=== PATIENT | male | born 1985 ===

== ENCOUNTER 2021-06-05 02:51 | Inpatient (IN) | payer MEDICAID ==
[~2021-06-05] VITALS: Ht 182.9 cm; Wt 79.6 kg
[2021-06-05] MEDS ORDERED: ENOXAPARIN 40 MG/0.4 ML SQ SCH (04:30)
[2021-06-05] MEDS ORDERED: LORazepam 1MG TABLET PO PRN (04:30)
[2021-06-05] MEDS ORDERED: MELATONIN 5 MG TABLET PO PRN (04:30)
[2021-06-05] MEDS ORDERED: PHARMACY MAY ADJ FOR RENAL FX MC PRN (04:30)
[2021-06-05] MEDS ORDERED: POLYETHYLENE GLYCOL 17 GM PACKET PO PRN (04:30)
[2021-06-05] MEDS ORDERED: LABETALOL 5MG/ML, 20ML IVPush PRN (04:30)
[2021-06-05] MEDS ORDERED: LORazepam 0.5MG TABLET PO PRN (04:30)
[2021-06-05] MEDS ORDERED: ONDANSETRON 2MG/ML, 2ML IVPush PRN (04:30)
[2021-06-05] MEDS ORDERED: VANCOMYCIN PER PHARMACY MC PRN (04:30)
--- NOTE | 2021-06-05 04:51 | NUR ---
PT TRANSFER FROM [facility] FOR ABCESS TO LEFT UPPER ARM. PT REPORTS HE GOT THE ABCESS 2 WEEKS AGO FROM USING INTRAVENOUS HEROIN AND METH. PT IS AAOX4 AND RESTING COMFORTABLY IN BED. CONNECTED TO VITAL MACHINE. WILL CONTINUE TO MONITOR.
[2021-06-05] MEDS ORDERED: PLEASE ENTER ALLERGIES MC SCH (05:00)
[2021-06-05] MEDS: LACTATED RINGERS 1,000 ML IV SCH ×4 (05:20→18:26)
--- NOTE | 2021-06-05 05:20 | NUR ---
FAXED PHARMACY FOR BANANA BAG AND ANTIBIOTICS.
--- NOTE | 2021-06-05 05:22 | NUR ---
PRIOR NOTES WRITTEN BY JOHN MONTANA
[2021-06-05 05:24] LABS: MEAN CORPUSCULAR HEMOGLOBIN 32.3 pg (27.5-34.5); MEAN CORPUSCULAR HGB CONC 35.1 g/dL (33.2-36.2); MEAN PLATELET VOLUME 7.4 fL (7.4-10.4); PLATELET COUNT 240 x10^3/uL (130-400); RED BLOOD COUNT 3.46 x10^6/uL (4.38-5.82)
[2021-06-05 05:30] LABS: ALBUMIN 1.9 g/dL (3.4-5.0); ANION GAP 9 mmol/L (5-15); CHLORIDE 104 mmol/L (98-107); CREATININE 0.96 mg/dL (0.7-1.3)
[2021-06-05] MEDS: POTASSIUM CHLORIDE 20 MEQ, MAGNESIUM SULFATE 1 GM, FOLIC ACID 1 MG, THIAMINE 200 MG, MV... IV SCH ×2 (05:52→11:53)
[2021-06-05] MEDS ORDERED: CHLORDIAZEPOXIDE 10 MG CAPSULE ONE ×2 (06:13→11:40)
[2021-06-05] MEDS: CHLORDIAZEPOXIDE 10 MG CAPSULE PO SCH ×2 (06:20→11:53)
[2021-06-05] MEDS: CEFEPIME 2 GM in DEXTROSE 5% 100 ML IV SCH ×2 (06:20→14:28)
--- NOTE | 2021-06-05 06:34 | NUR ---
PT AMBULATED TO RESTROOM AND BACK
[2021-06-05] MEDS ORDERED: OXYcodone/APAP 5/325MG TABLET ONE (06:43)
[2021-06-05 06:45] LABS: BAND#(MANUAL) 0.88 x10^3/uL; BANDS%(MANUAL) 8 % (0-7); EOS#(MANUAL) 0.11 x10^3/uL (0.0-0.4); EOS% (MANUAL) 1 % (1-7); LYMPH#(MANUAL) 0.88 x10^3/uL (1-3.4); LYMPHS% (MANUAL) 8 % (22-44); MONOS#(MANUAL) 1.32 x10^3/uL (0.3-2.7); MONOS% (MANUAL) 12 % (2-9); MYELOCYTES# (MANUAL) 0.22 x10^3/uL (0-0); MYELOCYTES% (MANUAL) 2 % (0-0); SEG#(MANUAL) 7.59 x10^3/uL (1.8-6.8); SEGS% (MANUAL) 69 % (42-75)
[2021-06-05] MEDS: OXYcodone IR 5MG TABLET PO PRN ×3 (06:45→20:00)
[2021-06-05 06:46] LABS: <PLATELET ESTIMATE> ADEQUATE; <PLT MORPHOLOGY> NORMAL PLT MORPH; <RBC MORPHOLOGY> NORMAL
--- NOTE | 2021-06-05 07:09 | NUR ---
ASSUMING CARE OF PT AFTER BEDSIDE REPORT. YELLOW MED REQ SLIP SENT TO PHARMACY.
--- NOTE | 2021-06-05 07:20 | NUR ---
ASSUMING CARE OF PT AFTER BEDSIDE REPORT. PT RESTING IN BED. VSS. SALCIDO ORTHOR AT BEDSIDE. PT PROVIDED WITH WARM BLANKETS.
[2021-06-05 07:39] LABS: ALBUMIN 1.9 g/dL (3.4-5.0)
[2021-06-05 07:42] LABS: ALANINE AMINOTRANSFERASE 51 U/L (12-78); ALKALINE PHOSPHATASE 114 U/L (45-117); BILIRUBIN, DIRECT < 0.1 mg/dL (0.1-0.2); BILIRUBIN,TOTAL 0.1 mg/dL (0.2-1.0); TOTAL PROTEIN 6.2 g/dL (6.4-8.2)
[2021-06-05] MEDS: FAMOTIDINE 20 MG/2 ML IVPush SCH ×2 (08:48→20:00)
--- NOTE | 2021-06-05 09:03 | NUR ---
PT ASLEEP WITH EVEN AND UNLABORED RESPIRATIONS. MENG. FABIAN.
[2021-06-05] MEDS ORDERED: HYDROmorphone 2 MG/ML, 1ML ONE (09:59)
[2021-06-05] MEDS: HYDROmorphone 2 MG/ML, 1ML IVPush PRN ×2 (10:03→13:01)
[2021-06-05] MEDS: VANCOMYCIN 1,800 MG in SODIUM CHLORIDE 0.9% 250 ML IV SCH ×2 (11:30→23:56)
[2021-06-05] MEDS ORDERED: PHARMACOKINETIC CONSULTATION MC ONE (11:30)
[2021-06-05] MEDS ORDERED: PHARMACOKINETIC MONITORING MC PRN (11:30)
[2021-06-05 12:58] VITALS: BP 178/90
[2021-06-05] MEDS: LORazepam 2 MG/ML, 1ML IV PRN (14:19)
[2021-06-05] MEDS ORDERED: CHLORDIAZEPOXIDE 10 MG CAPSULE PO SCH (16:00)
[2021-06-05] MEDS ORDERED: HYDROmorphone PCA 30 MG/30 ML IV PRN (16:00)
[2021-06-05] MEDS ORDERED: CHLORDIAZEPOXIDE 25 MG CAPSULE PO SCH (16:00)
[2021-06-05] MEDS ORDERED: DIAZEPAM 10 MG TABLET PO SCH (16:30)
[2021-06-05] MEDS ORDERED: DIAZEPAM 5 MG TABLET ONE (17:11)
[2021-06-05] MEDS: METRONIDAZOLE PMX 500MG/100ML 100 ML IV SCH ×2 (17:26→22:09)
[2021-06-05 19:58] VITALS: BP 116/72
[2021-06-05] MEDS: ACETAMINOPHEN 325 MG TABLET PO PRN (22:18)
[2021-06-06] VITALS: BP 144/85
[2021-06-06] MEDS: OXYcodone IR 5MG TABLET PO PRN ×3 (00:02→09:03)
[2021-06-06] MEDS ORDERED: OMNIPAQUE 350 MG/ML, 100ML BOTTLE ONE (00:30)
[2021-06-06] MEDS: CEFEPIME 2 GM in DEXTROSE 5% 100 ML IV SCH ×3 (01:11→17:29)
[2021-06-06] MEDS: METRONIDAZOLE PMX 500MG/100ML 100 ML IV SCH ×3 (04:07→19:25)
[2021-06-06] MEDS: POTASSIUM CHLORIDE 20 MEQ, MAGNESIUM SULFATE 1 GM, FOLIC ACID 1 MG, THIAMINE 200 MG, MV... IV SCH (05:26)
[2021-06-06 05:43] LABS: ALBUMIN 1.7 g/dL (3.4-5.0); ANION GAP 10 mmol/L (5-15); CALCIUM 8.1 mg/dL (8.5-10.1); CHLORIDE 97 mmol/L (98-107); MEAN CORPUSCULAR HEMOGLOBIN 32.4 pg (27.5-34.5); MEAN CORPUSCULAR HGB CONC 35.6 g/dL (33.2-36.2); MEAN PLATELET VOLUME 6.9 fL (7.4-10.4); PLATELET COUNT 255 x10^3/uL (130-400); RED BLOOD COUNT 3.65 x10^6/uL (4.38-5.82); RED CELL DISTRIBUTION WIDTH 13.8 % (9.4-14.8)
[2021-06-06 05:47] LABS: ALANINE AMINOTRANSFERASE 42 U/L (12-78); ALKALINE PHOSPHATASE 99 U/L (45-117); BILIRUBIN,TOTAL 0.5 mg/dL (0.2-1.0); CREATININE 0.76 mg/dL (0.7-1.3); TOTAL PROTEIN 5.8 g/dL (6.4-8.2)
[2021-06-06] MEDS ORDERED: CHLORDIAZEPOXIDE 5 MG CAPSULE PO SCH (06:00)
[2021-06-06 06:38] LABS: <PLATELET ESTIMATE> ADEQUATE; <PLT MORPHOLOGY> NORMAL PLT MORPH; <RBC MORPHOLOGY> NORMAL; BAND#(MANUAL) 0.71 x10^3/uL; BANDS%(MANUAL) 7 % (0-7); EOS% (MANUAL) 1 % (1-7); LYMPH#(MANUAL) 1.11 x10^3/uL (1-3.4); LYMPHS% (MANUAL) 11 % (22-44); METAMYELOCYTES% (MANUAL) 3 % (0-1); MONOS#(MANUAL) 1.31 x10^3/uL (0.3-2.7); MONOS% (MANUAL) 13 % (2-9); SEG#(MANUAL) 6.57 x10^3/uL (1.8-6.8); SEGS% (MANUAL) 65 % (42-75)
[2021-06-06] MEDS ORDERED: CHLORHEXIDINE 15 ML UDC MM STA (08:12)
[2021-06-06 08:37] VITALS: BP 146/87
[2021-06-06] MEDS: DIAZEPAM 5 MG TABLET PO SCH ×2 (09:03→16:34)
[2021-06-06] MEDS: FAMOTIDINE 20 MG/2 ML IVPush SCH ×2 (09:04→21:24)
[2021-06-06] MEDS ORDERED: MIDAZOLAM 1 MG/ML, 2ML ONE (10:28)
[2021-06-06] MEDS ORDERED: FENTANYL PF 250 MCG/5ML ONE (10:28)
[2021-06-06] MEDS ORDERED: PROPOFOL 10 MG/ML, 20ML ONE ×4 (10:29→10:54)
[2021-06-06] MEDS ORDERED: ONDANSETRON 2MG/ML, 2ML IVPush PRN (10:30)
[2021-06-06] MEDS ORDERED: hydrALAzine 20 MG/ML, 1ML IV PRN (10:30)
[2021-06-06] MEDS ORDERED: LABETALOL 5MG/ML, 20ML IV PRN (10:30)
[2021-06-06] MEDS ORDERED: morphine SULFATE 10 MG/ML, 1ML IVPush PRN (10:30)
[2021-06-06] MEDS ORDERED: OXYcodone 5 MG/5 ML ORAL.SOL UDC PO PRN (10:30)
[2021-06-06] MEDS ORDERED: MEPERIDINE/PF 25MG/0.5ML IVPush PRN (10:30)
[2021-06-06] MEDS ORDERED: ACETAMINOPHEN 325 MG TABLET PO PRN (10:30)
[2021-06-06] MEDS ORDERED: FENTANYL PF 100 MCG/2ML ONE (11:01)
[2021-06-06] MEDS ORDERED: HYDROmorphone 2 MG/ML, 1ML ONE (11:01)
[2021-06-06] MEDS ORDERED: OXYcodone 5 MG/5 ML ORAL.SOL UDC ONE (11:02)
[2021-06-06] MEDS: FENTANYL PF 100 MCG/2ML IV PRN ×2 (11:14→11:19)
[2021-06-06] MEDS: HYDROmorphone 1 MG/ML, 1ML INJ IVPush PRN ×4 (11:19→11:39)
[2021-06-06 12:24] VITALS: BP 145/85
[2021-06-06] MEDS: VANCOMYCIN 1,500 MG in SODIUM CHLORIDE 0.9% 250 ML IV SCH (14:30)
[2021-06-06] MEDS: LACTATED RINGERS 1,000 ML IV SCH (14:30)
[2021-06-06 19:34] VITALS: BP 142/78
[2021-06-07 00:38] VITALS: BP 138/83
[2021-06-07] MEDS: LACTATED RINGERS 1,000 ML IV SCH ×3 (01:00→22:21)
[2021-06-07] MEDS: LORazepam 2 MG/ML, 1ML IV PRN ×7 (01:06→20:14)
[2021-06-07] MEDS: CEFEPIME 2 GM in DEXTROSE 5% 100 ML IV SCH ×3 (01:06→16:51)
[2021-06-07] MEDS: METRONIDAZOLE PMX 500MG/100ML 100 ML IV SCH ×4 (02:03→21:43)
[2021-06-07] MEDS: VANCOMYCIN 1,500 MG in SODIUM CHLORIDE 0.9% 250 ML IV SCH ×3 (03:06→22:20)
[2021-06-07 04:39] LABS: BASOPHILS % (AUTO) 0 % (0-1); EOSINOPHILS % (AUTO) 1 % (1-7); LYMPHOCYTES % (AUTO) 14 % (22-44); MEAN CORPUSCULAR HEMOGLOBIN 31.3 pg (27.5-34.5); MEAN CORPUSCULAR HGB CONC 34.3 g/dL (33.2-36.2); MEAN PLATELET VOLUME 6.7 fL (7.4-10.4); MONOCYTES % (AUTO) 12 % (2-9); NEUTROPHILS % (AUTO) 74 % (42-75); PLATELET COUNT 323 x10^3/uL (130-400); RED CELL DISTRIBUTION WIDTH 13.9 % (9.4-14.8)
[2021-06-07 04:51] LABS: ALBUMIN 1.8 g/dL (3.4-5.0); ANION GAP 4 mmol/L (5-15); CALCIUM 8.2 mg/dL (8.5-10.1); CHLORIDE 99 mmol/L (98-107)
[2021-06-07 04:55] LABS: ALANINE AMINOTRANSFERASE 33 U/L (12-78); ALKALINE PHOSPHATASE 91 U/L (45-117); BILIRUBIN,TOTAL 0.4 mg/dL (0.2-1.0); TOTAL PROTEIN 6.1 g/dL (6.4-8.2)
[2021-06-07] MEDS: POTASSIUM CHLORIDE 20 MEQ, MAGNESIUM SULFATE 1 GM, FOLIC ACID 1 MG, THIAMINE 200 MG, MV... IV SCH (05:55)
[2021-06-07 06:49] VITALS: BP 153/98
[2021-06-07] MEDS: FAMOTIDINE 20 MG/2 ML IVPush SCH ×2 (08:14→20:14)
[2021-06-07] MEDS ORDERED: LORazepam 2 MG/ML, 1ML IV PRN ×3 (09:00)
[2021-06-07 12:23] VITALS: BP 147/93
[2021-06-07] MEDS: OXYcodone IR 5MG TABLET PO PRN ×2 (16:52→21:42)
[2021-06-07 19:05] VITALS: BP 122/83
[2021-06-08] MEDS: CEFEPIME 2 GM in DEXTROSE 5% 100 ML IV SCH ×3 (00:44→17:46)
[2021-06-08 01:04] VITALS: BP 138/83
[2021-06-08] MEDS: METRONIDAZOLE PMX 500MG/100ML 100 ML IV SCH ×3 (03:29→15:49)
[2021-06-08] MEDS: OXYcodone IR 5MG TABLET PO PRN ×3 (04:49→20:29)
[2021-06-08] MEDS: LORazepam 2 MG/ML, 1ML IV PRN ×3 (04:56→13:37)
[2021-06-08 05:04] LABS: MEAN CORPUSCULAR HEMOGLOBIN 31.4 pg (27.5-34.5); MEAN CORPUSCULAR HGB CONC 33.9 g/dL (33.2-36.2); MEAN PLATELET VOLUME 7.2 fL (7.4-10.4); PLATELET COUNT 402 x10^3/uL (130-400); RED BLOOD COUNT 4.02 x10^6/uL (4.38-5.82); RED CELL DISTRIBUTION WIDTH 14.1 % (9.4-14.8)
[2021-06-08 05:10] LABS: ANION GAP 3 mmol/L (5-15); CALCIUM 8.1 mg/dL (8.5-10.1); CHLORIDE 106 mmol/L (98-107); CREATININE 0.67 mg/dL (0.7-1.3)
[2021-06-08 05:46] LABS: <RBC MORPHOLOGY> NORMAL; BAND#(MANUAL) 0.36 x10^3/uL; BANDS%(MANUAL) 4 % (0-7); EOS#(MANUAL) 0.18 x10^3/uL (0.0-0.4); EOS% (MANUAL) 2 % (1-7); LYMPH#(MANUAL) 1.53 x10^3/uL (1-3.4); LYMPHS% (MANUAL) 17 % (22-44); METAMYELOCYTES# (MANUAL) 0.09 x10^3/uL (0-0); METAMYELOCYTES% (MANUAL) 1 % (0-1); MONOS#(MANUAL) 0.27 x10^3/uL (0.3-2.7); MONOS% (MANUAL) 3 % (2-9); MYELOCYTES# (MANUAL) 0.18 x10^3/uL (0-0); MYELOCYTES% (MANUAL) 2 % (0-0); SEG#(MANUAL) 6.39 x10^3/uL (1.8-6.8); SEGS% (MANUAL) 71 % (42-75)
[2021-06-08 05:47] LABS: <PLATELET ESTIMATE> ADEQUATE; <PLT MORPHOLOGY> NORMAL PLT MORPH
[2021-06-08] MEDS: VANCOMYCIN 1,500 MG in SODIUM CHLORIDE 0.9% 250 ML IV SCH (06:37)
[2021-06-08] MEDS: FAMOTIDINE 20 MG/2 ML IVPush SCH ×2 (07:34→20:29)
[2021-06-08] MEDS: ACETAMINOPHEN 325 MG TABLET PO PRN (07:34)
[2021-06-08 07:49] VITALS: BP 114/83
[2021-06-08] MEDS ORDERED: NICOTINE 21 MG/24 HR PATCH.TD24 TD SCH (09:00)
[2021-06-08] MEDS: POTASSIUM CHLORIDE 20 MEQ, MAGNESIUM SULFATE 1 GM, FOLIC ACID 1 MG, THIAMINE 200 MG, MV... IV SCH (10:18)
[2021-06-08 12:26] VITALS: BP 129/80
[2021-06-08] MEDS ORDERED: ENOXAPARIN 40 MG/0.4 ML SQ SCH (13:30)
[2021-06-08 19:12] VITALS: BP 158/87
== END 2021-06-08 21:00 | disposition left against medical advice (07) | DRG 603 ==
LOC: ED 03:00 → EDIP 04:20 → 4NW 12:49
PROVIDERS: ADMIT Internal Medicine; ATTEND Family Medicine
PROC: 0X9F0ZZ Drainage of Left Lower Arm, Open Approach (ICD-10-PCS; principal; 2021-06-06 11:30)
DX: L02.414 Cutaneous abscess of left upper limb (principal); E87.1 Hypo-osmolality and hyponatremia; F10.239 Alcohol dependence with withdrawal, unspecified; N17.9 Acute kidney failure, unspecified; R65.10 Systemic inflammatory response syndrome (SIRS) of non-infectious origin without acute organ dysfunction; L03.114 Cellulitis of left upper limb; F17.210 Nicotine dependence, cigarettes, uncomplicated; F32.9 Major depressive disorder, single episode, unspecified; F41.1 Generalized anxiety disorder; F11.129 Opioid abuse with intoxication, unspecified; Z17.1 Estrogen receptor negative status [ER-]; Z71.51 Drug abuse counseling and surveillance of drug abuser
CPT/HCPCS: 36415; 84145; 96374; 99285; J7121; 80048; 80053; 80076; 80202; 82040; 83735; 84100; 85025; 87040; 87070; 87075; 87147; 87181; 87205; 87635; 93306; G0378; J1170; J1650; J2250; J2704; J3010; J3370; J3411; J3475; J3480; Q9967; J2060; J7050; J7120